=== PATIENT | female | born 1975 | race Caucasian/White ===

== ENCOUNTER 2024-04-15 21:02 | Emergency (ER) | payer OTHER ==
[2024-04-15 21:38] LABS: ALT 17 U/L (4-34); AST 26 U/L (14-36); African American GFR (CKD) >90 (>60 ml/min/1.73 sqM); Albumin 4.7 g/dL (3.5-5.0); Alcohol <10 mg/dL; Alkaline Phosphatase 52 U/L (38-126); Anion Gap 9 mmol/L; Basophils % (A) 0 %; Blood Urea Nitrogen 18 mg/dL (7-17); Calcium 9.7 mg/dL (8.4-10.2); Carbon Dioxide 22 mmol/L (22-30); Chloride 110 mmol/L (98-107); Eosinophils # (A) 0.2 k/uL (0-0.7); Eosinophils % (A) 3 %; Glucose 93 mg/dL (74-99); HGB 14.1 gm/dL (11.4-16.0); Lymphocytes # (A) 1.5 k/uL (1.0-4.8); Lymphocytes % (A) 22 %; MCH 30.2 pg (25.0-35.0); MCV 94.6 fL (80.0-100.0); Monocytes # (A) 0.3 k/uL (0-1.0); Monocytes % (A) 5 %; Neutrophils # (A) 4.6 k/uL (1.3-7.7); Neutrophils % (A) 68 %; Non-African American GFR(CKD) >90 (>60 ml/min/1.73 sqM); Platelet Count 323 k/uL (150-450); Potassium 3.4 mmol/L (3.5-5.1); RBC 4.66 m/uL (3.80-5.40); RDW 13.7 % (11.5-15.5); Sodium 141 mmol/L (137-145); Total Bilirubin 0.7 mg/dL (0.2-1.3); Total Protein 7.1 g/dL (6.3-8.2); WBC 6.7 k/uL (3.8-10.6)
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
[2024-04-15] MEDS: ACETAMINOPHEN TAB 500 MG TAB PO STA (21:43)
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
[2024-04-15 21:57] LABS: INR 0.9 (<1.2)
[2024-04-15 21:58] LABS: Partial Thromboplastin Time 22.3 sec (22.0-30.0); Prothrombin Time 10.3 sec (10.0-12.5)
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
[2024-04-15] MEDS: IBUPROFEN 600 MG TAB PO STA (22:17)
[2024-04-15] MEDS: BACITRACIN OINT 1 EACH PACKET TOPICAL ONE (23:18)
[2024-04-15 23:21] VITALS: BP 121/88; PULSE 80; RESP 14
[2024-04-15 23:22] VITALS: TEMP 98.6
== END 2024-04-15 23:22 | disposition home or self-care (01) ==
LOC: EC 21:02
DX: S01.01XA Laceration without foreign body of scalp, initial encounter (principal); S01.81XA Laceration without foreign body of other part of head, initial encounter; F17.200 Nicotine dependence, unspecified, uncomplicated; V47.5XXA Car driver injured in collision with fixed or stationary object in traffic accident, initial encounter; Y92.410 Unspecified street and highway as the place of occurrence of the external cause
CPT/HCPCS: 12002; 12011; 36415; 70450; 71045; 72125; 80053; 80320; 84484; 85025; 85610; 85730; 99285